=== PATIENT | female | born 1985 | race African-American/Black ===

== ENCOUNTER 2018-04-15 21:41 | Emergency (ER) | payer OTHER ==
[~2018-04-15] VITALS: Ht 165.1 cm; Wt 65.0 kg
[2018-04-15] MEDS ORDERED: IBUPROFEN 600MG TABLET PO ONE (22:30)
[2018-04-16 00:41] VITALS: BP 102/66
== END 2018-04-16 00:41 | disposition home or self-care (01) ==
LOC: ER 21:57
DX: S80.02XA Contusion of left knee, initial encounter (principal); S70.02XA Contusion of left hip, initial encounter; V43.02XA Car driver injured in collision with other type car in nontraffic accident, initial encounter; Y93.89 Activity, other specified; Y92.481 Parking lot as the place of occurrence of the external cause; R03.0 Elevated blood-pressure reading, without diagnosis of hypertension; Z91.018 Allergy to other foods; Z91.013 Allergy to seafood
CPT/HCPCS: 73502; 73562; 81025; 99284